=== PATIENT | female | born 1945 | race Caucasian/White ===

== ENCOUNTER → 2022-03-13 09:11 | Outpatient (CLI) | payer OTHER, SELFPAY ==
--- NOTE | 2022-03-13 09:16 | DI.RAD.S_ITS ---
PROCEDURE: XR HIP W PEL IF DONE [place] MIN 4V INDICATIONS: bilateral hip pain, shortness of breath TECHNIQUE: AP pelvis with lateral view(s) of the right and left hip(s). COMPARISON: None. FINDINGS: Bones: No fractures or dislocations. Pelvic ring appears intact. No suspicious bony lesions. Moderate to severe bilateral hip osteoarthritis with osseous hypertrophy, joint space narrowing, subchondral sclerosis and subchondral cyst formation. Soft tissues: The visualized bowel gas pattern is normal. No suspicious soft tissue calcifications. IMPRESSION: Moderate to severe bilateral hip osteoarthritis. Dictated by: Mary Gutierrez MD, PhD on 03/13/2022 at 10:40 Approved by: Mary Gutierrez MD, PhD on 03/13/2022 at 10:41
--- NOTE | 2022-03-13 09:16 | DI.RAD.S_ITS ---
PROCEDURE: XR CHEST 2V INDICATIONS: bilateral hip pain, shortness of breath TECHNIQUE: 2 views of the chest were acquired. COMPARISON: None. FINDINGS: Surgical changes and devices: None. Lungs and pleura: Lungs are clear. No pleural effusions or pneumothorax. The lung volumes are large and the diaphragms are flattened suggesting emphysema. Mediastinum: Mediastinal contours are normal. Heart size is normal. Bones and chest wall: No suspicious bony abnormalities. Soft tissues appear unremarkable. IMPRESSION: No acute cardiopulmonary findings. Emphysematous change. Dictated by: Sapna Pabon M.D. on 03/13/2022 at 10:31 Approved by: Sapna Pabon M.D. on 03/13/2022 at 10:32
== END ==
PROVIDERS: PCP Family Medicine; Referring Provider Family Medicine; Visit Provider Family Medicine
DX: R06.02 Shortness of breath; M25.551 Pain in right hip; M25.552 Pain in left hip; M16.0 Bilateral primary osteoarthritis of hip
CPT/HCPCS: 71046; 73522

== ENCOUNTER → 2022-05-08 14:48 | Outpatient (CLI) | payer OTHER, SELFPAY ==
--- NOTE | 2022-05-08 | DI.ECHO.S_ITS ---
[place] +---------+ [facility] +---------+ : : [address] : : : : [id number] : : : : Phone: [phone]+ Echocardiogram Report + + :Name: SUSI CRUMP Study Date: 05/08/2022 Height: 63 in : :[facility] ReadingLocation: Weight: 138 lb : : Gender: Female BSA: 1.7 m2 : :: 1945 Age: 76 yrs BP: 169/91 mmHg: :Reason For Study: Palpitations : :Ordering Physician: WAQAR, : :LOUISE Virgen Performed By: Paras Mott : :Referring: LOUISE ZAVALETA : + + Interpretation Summary 1) Severely enlarged left ventricle with normal systolic function (EF 60-65%). 2) Normal right ventricle and function. 3) The left atrium is very severely dilated. 4) There is severe mitral valve prolapse of the posterior leaflet. 5) There is severe mitral regurgitation, directed anteriorly. 6) The right ventricular systolic pressure is estimated to be at least 47 mmHg based on an estimated right atrial pressure of 3 mm Hg. 7) No prior Echo available for comparison. Recommend urgent cardiology consult. Procedure: A two-dimensional transthoracic echocardiogram with color flow and Doppler was performed. The study quality was technically adequate. There is no prior echocardiogram noted for this patient. Left Ventricle: The left ventricle is severely dilated. There is normal left ventricular wall thickness. Left ventricular systolic function is normal. The ejection fraction is estimated to be 60-65%. There are no focal wall motion abnormalities. Diastolic function could not be accurately assessed due to confounding valvular disease. Right Ventricle: The right ventricle is normal in size and function. Atria: The left atrium is severely dilated. Right atrial size is normal. The interatrial septum grossly appears intact with no obvious evidence for an atrial septal defect. Mitral Valve: There is severe mitral valve prolapse. There is prolapse of the posterior mitral valve leaflet(s). There is severe mitral regurgitation. The mitral regurgitant jet is eccentrically directed. Aortic Valve: The aortic valve is normal in structure and function. No aortic regurgitation is present. Tricuspid Valve: The tricuspid valve is normal in structure and function. There is mild tricuspid regurgitation. The right ventricular systolic pressure is estimated to be at least 47 mmHg based on an estimated right atrial pressure of 3 mm Hg. Pulmonic Valve: The pulmonic valve is not well visualized. There is no pulmonic valvular regurgitation. Great Vessels: The aortic root is normal size. The dimensions of the ascending aorta are normal. The IVC is of normal diameter and collapses greater than 50% with a sniff. This suggests a low right atrial pressure of 3 mm Hg. Pericardium/ Pleura There is no pericardial effusion. There is no pleural effusion. MMode/2D Measurements & Calculations LVIDd: 6.4 cm LVOT diam: 2.0 cm LVIDs: 4.5 cm Ao root diam: 3.1 cm FS: 30.2 % asc Aorta Diam: 3.2 cm IVSd: 1.0 cm LVPWd: 0.98 cm LV montalvo. diameter/BSA (cm/m^2): 3.9 LV sys. diameter/BSA (cm/m^2): 2.7 LA A2 area: 37.7 cm2 RA long axis: 6.1 cm LA A4 area: 41.2 cm2 RA area: 18.7 cm2 LA length (vol): 7.6 cm RA vol: 48.8 ml LA vol: 173.0 ml RA : 29.5 ml/m2 LA vol index: 104.7 ml/m2 TAPSE: 2.6 cm Doppler Measurements & Calculations Ao V2 max: 112.0 cm/sec LVOT Max Juan: 80.2 cm/sec Ao V2 mean: 71.3 cm/sec LV V1 max P.6 mmHg Ao max P.0 mmHg LV V1 VTI: 11.6 cm Ao mean P.4 mmHg HAIR(I,D): 2.0 cm2 Ao V2 VTI: 18.9 cm HAIR(V,D): 2.3 cm2 sev ratio: 0.61 HAIR indexed to BSA (cm^2/m^2): 1.2 MV E max juan: 124.9 cm/sec TR max juan: 331.7 cm/sec MV A max juan: 62.2 cm/sec TR max P.0 mmHg MV E/A: 2.0 Lat Peak E' Juan: 12.1 cm/sec E/E' lat: 10.3 MV dec time: 0.13 sec GLORIA): 37.2 ml Reading Physician:04:05 PM
== END ==
PROVIDERS: PCP Family Medicine; Referring Provider Family Medicine; Visit Provider Family Medicine
DX: R00.2 Palpitations (principal); I51.7 Cardiomegaly; I34.1 Nonrheumatic mitral (valve) prolapse; I34.0 Nonrheumatic mitral (valve) insufficiency
CPT/HCPCS: 93306

== ENCOUNTER → 2023-08-03 07:51 | Outpatient (CLI) | payer OTHER, SELFPAY ==
--- NOTE | 2023-08-03 | DI.ECHO.S_ITS ---
[place] +---------+ [facility] +---------+ : : [address] : : : : [id number] : : : : Phone: [phone]+ Echocardiogram Report + + :Name: SUSI CRUMP Study Date: 08/03/2023 Height: 61.5 in: :[facility] ReadingLocation: Weight: 138 lb : : Gender: Female BSA: 1.6 m2 : :: 1945 Age: 77 yrs BP: 164/87 mmHg: :Reason For Study: CARDIOMYOPATHY : :Ordering Physician: MANAN, : :WINDY Performed By: Vita Shaffer : :Referring: WINDY CARSON : + + Interpretation Summary 1) Mildly enlarged left ventricle with mildly reduced systolic function (EF 45-50%). 2) Mildly enlarged right ventricle with low normal function. 3) The left atrium is severely dilated. 4) Mitral valve is s/p annuloplasty and repair that opens well (mean inflow gradient 1.4mmHg). There is mild mitral regurgitation. 5) Compared to the Echo done 11/13/2022, LVEF has improved from 30-35% to 45- 50% on this study. Procedure: A two-dimensional transthoracic echocardiogram with color flow and Doppler was performed. The study quality was technically adequate. Comparison is made with the echocardiogram of 11/13/2022. The patient was in sinus bradycardia with heart rates between 43-48 bpm during the exam. Left Ventricle: The left ventricle is mildly dilated. Proximal septal thickening is noted. The estimated left ventricular end diastolic volume is 82 ml. The ejection fraction is estimated to be 45-50%. There is mild global hypokinesis of the left ventricle. Diastolic parameters suggest a pseudonormalization pattern, consistent with probable elevated filling pressures. Right Ventricle: The right ventricle is mildly dilated. The right ventricular systolic function is normal. Atria: The left atrium is severely dilated. Right atrial size is normal. There is no Doppler evidence for an interatrial shunt. Mitral Valve: S/P MV repair 36 mm [place], Flex Form Band (07/16/2022). The mitral valve mean gradient is 1.4 mmHg. There is mild mitral regurgitation. Aortic Valve: The aortic valve is trileaflet. The aortic valve opens well. There is no aortic valve stenosis. No aortic regurgitation is present. Tricuspid Valve: The tricuspid valve is normal in structure and function. There is mild tricuspid regurgitation. The right ventricular systolic pressure is estimated to be at least 26 mmHg based on an estimated right atrial pressure of 3 mm Hg. Pulmonic Valve: The pulmonic valve is not well visualized. There is no pulmonic valvular regurgitation. Great Vessels: The aortic root is normal size. The dimensions of the ascending aorta are normal. The IVC is of normal diameter and collapses greater than 50% with a sniff. This suggests a low right atrial pressure of 3 mm Hg. Pericardium/ Pleura There is no pericardial effusion. There is no pleural effusion. MMode/2D Measurements & Calculations LVIDd: 5.7 cm LVOT diam: 2.1 cm LVIDs: 4.1 cm Ao root diam: 2.9 cm FS: 29.1 % asc Aorta Diam: 3.2 cm EPSS: 0.52 cm Ao Arch Diam (Prox Trans): 2.6 cm IVSd: 0.95 cm LVPWd: 0.85 cm LV montalvo. diameter/BSA (cm/m^2): 3.5 LV sys. diameter/BSA (cm/m^2): 2.5 LA A2 area: 23.7 cm2 RA long axis: 4.8 cm LA A4 area: 22.8 cm2 RA area: 15.9 cm2 LA length (vol): 5.4 cm RA vol: 44.9 ml LA vol: 84.4 ml RA : 27.6 ml/m2 LA vol index: 51.9 ml/m2 IVC diam: 1.6 cm RVD1 (basal): 4.1 cm RVD2 (mid): 2.9 cm TAPSE: 1.6 cm Doppler Measurements & Calculations Ao V2 max: 111.1 cm/sec LVOT Max Juan: 97.2 cm/sec Ao V2 mean: 82.5 cm/sec LV V1 max P.8 mmHg Ao max P.9 mmHg LV V1 VTI: 21.7 cm Ao mean P.9 mmHg HAIR(I,D): 2.9 cm2 Ao V2 VTI: 26.7 cm HAIR(V,D): 3.1 cm2 sev ratio: 0.81 HAIR indexed to BSA (cm^2/m^2): 1.8 MV E max juan: 87.0 cm/sec TR max juan: 237.2 cm/sec MV A max juan: 115.2 cm/sec TR max P.5 mmHg MV E/A: 0.76 PA V2 max: 66.7 cm/sec Med Peak E' Juan: 4.4 cm/sec PA V2 mean: 48.3 cm/sec E/E' med: 19.9 PA mean P.0 mmHg Lat Peak E' Juan: 8.0 cm/sec PA pr(Accel): 32.8 mmHg E/E' lat: 10.9 E/e' average: 15.4 MV dec time: 0.44 sec MVA(VTI): 1.6 cm2 MV V2 mean: 50.3 cm/sec SV(LVOT): 76.4 ml MV mean P.4 mmHg MV V2 VTI: 48.1 cm Reading Physician:02:51 PM
== END ==
PROVIDERS: PCP Student in an Organized Health Care Education/Training Program; Referring Provider Internal Medicine Cardiovascular Disease; Visit Provider Internal Medicine Cardiovascular Disease
DX: I42.9 Cardiomyopathy, unspecified (principal); I51.7 Cardiomegaly
CPT/HCPCS: 93306

== ENCOUNTER 2023-08-25 10:15 | Outpatient (RCR) | payer OTHER, SELFPAY ==
--- OUTSIDE RECORDS SUMMARY | 2023-09-24 15:08 | XMS_ITS | Referral Summary ---
Author Name Unknown Organization [facility] Address [address] [place] [address] Care Team Providers Care Call Center Receptionist Name Role Phone Candido Pierson Primary Care Provider [phone] Reason for Referral * Diagnostic Imaging (Urgent) - Pending Review Specialty Diagnoses / Procedures Referred By Alissa t Referred To Contact Radiology Diagnoses Cardiomyopathy, unspecified type ([facility]) Procedures ECHOCARDIOGRAM COMPLETE Windy Carson MD [address] [place] [address] [address] [place] [address] Referral ID Status Reason Start Date Expiration Date Visits Requested Visits Authorized [id number] Pending Review Specialty Services Required 03/05/2023 02/28/2024 1 1 * Rehabilitation - Outpatient (Urgent) - Authorized Specialty Diagnoses / Procedures Referred By Alissa t Referred To Contact Cardiac Rehabilitation Diagnoses S/P CABG x 1 S/P MVR (mitral valve repair) Windy Carson MD [address] [place] [address] [address] [place] [address] [id number] Referral ID Status Reason Start Date Expiration Date V isits Requested Visits Authorized [id number] Authorized 03/05/2023 02/28/2024 1 1 Reason for Visit * Reason Comments Coronary Artery Disease Valve Disorder Encounter Details Date Type Department Care Team Description 03/05/[address] [facility] Cardiology [address] [place] [id number] Windy Carson MD [address] [place] [address] [address] [place] [address] ASHD (arteriosclerotic heart disease) (Primary Dx); S/P CABG x 1; S/P MVR (mitral valve repair); Mixed hyperlipidemia; Cardiomyopathy, unspecified type ([facility]) Allergies Active Allergy Reactions Severity Noted Date Comments Sulfa (Sulfonamide Antibiotics) Shortness of breath,Rash H igh 05/12/2022 documented as of this encounter (statuses as of 03/29/2023) Medications Medication Sig Dispensed Refills Start Date End Date Status multivitamin (THERAGRAN) tablet tablet Take 1 tablet by mouth daily 0 Active ascorbic acid, vitamin C, (VITAMIN C) 1,000 mg tablet Take 1 tablet (1,000 mg total) by mouth daily 0 Active b complex vitamins tablet Take 1 tablet by mouth 4 (four) times a week 0 Active calcium carbonate 600 mg calcium (1,500 mg) tablet Take 600 mg by mouth 3 (three) times a week 0 Active cholecalciferol (VITAMIN D3) 25 mcg (1,000 unit) oral tablet Take 1 tablet (1,000 Units total) by mouth daily 0 Active acetaminophen (TYLENOL) 500 mg tablet Take 4-6 tablets (2,000-3,000 mg total) by mouth daily 0 Active metoprolol succinate XL (TOPROL-XL) 25 mg 24 hr tablet Take 0.5 tablets (12.5 mg total) by mouth daily 45 tablet 3 03/05/2023 03/04/2024 Active aspirin 81 mg EC tablet Take 1 tablet (81 mg total) by mouth daily 30 tablet 11 03/05/2023 03/04/2024 Active rosuvastatin (CRESTOR) 5 mg tablet Take 1 tablet (5 mg total) by mouth nightly 90 tablet 3 03/05/2023 03/04/2024 Active rosuvastatin (CRESTOR) 5 mg tablet Take 1 tablet (5 mg total) by mouth nightly 90 tablet 3 05/12/2022 03/05/2023 Discontinued (Reorder) metoprolol succinate XL (TOPROL-XL) 25 mg 24 hr tablet Take 1 tablet (25 mg total) by mouth 2 (two) times a day 60 tablet 11 11/19/2022 03/05/2023 Discontinued (Reorder) aspirin 81 mg EC tablet Take 1 tablet (81 mg total) by mouth daily 0 03/05/2023 Discontinued (Reorder) documented as of this encounter (statuses as of 03/29/2023) Active Problems Problem Noted Date Typical atrial flutter 11/03/2022 Coronary artery disease invo lving [place] coronary artery of [place] heart without angina pectoris 08/13/2022 Nonrheumatic mitral valve regurgitation 08/13/2022 Mixed hyperlipidemia 08/13/2022 S/P MVR (mitral valve repair) 08/13/2022 S/P CABG x 1 08/13/2022 documented as of this encounter (statuses as of 03/29/2023) Social History Tobacco Use Types Packs/Day Years Used Date Smoking Tobacco: Former Cigarettes Q uit: 1979 Smokeless Tobacco: Never Tobacco Cessation:Counseling Given: Not Answered Alcohol Use Standard Drinks/Week Comments Yes 2 (1 standard drink = 0.6 oz pur e alcohol) Sex Assigned at Date Recorded Female 06/15/2022 9:41 AM P DT Job Start Date Occupation Industry Not on file Not on file Not on file documented as of this encounter Last Filed Vital Signs Vital Sign Reading Time Taken Comments Blood Pressure 164/62 03/05/2023 11:43 AM PDT Pulse 43 03/05/2023 11:43 AM PDT Temperature - - Respiratory Rate - - Oxygen Saturation - - Inhaled Oxygen Concentration - - Weight 66.7 kg (147 lb) 03/05/2023 11:43 AM PDT Height 160 cm (5' 3) 03/05/2023 11:43 AM PDT Body Mass Index 26.04 03/05/2023 11:43 AM PDT documented in this encounter Progress Notes * Windy Carson MD - 03/05/2023 11:40 AM PDT Decrease metoprolol XL to 12.5mg daily. * Windy Carson MD - 03/05/2023 11:40 AM PDT Subjective Patient ID: Socorro Pinzon is a 77 y.o. female that presents today for had concerns including Coronary Artery Disease and Valve Disorder. HPI: 77 yo W h/o MV repair and CAD here for F/U on her CAD. Patient is here by her . Since her last visit with me, she underwent atrial flutter ablation and has done well. She continues to have mild dyspnea and significant left hip and left knee pains such as climbing up a flight of stairs. She has minimal chest wall pain. Denies lightheadedness or syncope. Home BP readings are in the 110s-120/k07l-12t. PROBLEM LIST: # Mitral valve regurgitation s/p MV annuloplasty and repair 06/2022 # CAD s/p 1V CABG (SVG->PDA) with MV repair # Atrial flutter s/p ablation 10/2022 # HTN # HLD Past Medical History: Diagnosis Date ??? Arrhythmia ??? Coronary artery disease involving [place] coronary artery of [place] heart without angina pectoris 08/13/2022 ??? Mixed hyperlipidemia ??? MVP (mitral valve prolapse) 05/08/2022 ??? Nonrheumatic mitral valve regurgitation 08/13/2022 ??? Osteoarthritis ??? Primary hypertension ??? Severe mitral valve regurgitation 05/08/2022 Past Surgical History: Procedure Laterality Date ??? CORONARY ARTERY BYPASS GRAFT Family History Problem Relation Age of Onset ??? Aortic aneurysm Father ??? Atrial fibrillation Sister ??? Hyperlipidemia Sister ??? Hyperlipidemia Brother Social History Socioeconomic History ??? Marital status: Tobacco Use ??? Smoking status: Former Types: Cigarettes Quit date: 1980 Years since quittin.3 ??? Smokeless tobacco: Never Substance and Sexual Activity ??? Alcohol use: Yes Alcohol/week: 2.0 standard drinks Types: 1 Glasses of wine, 1 Shots of liquor per week ??? Drug use: Not Currently Types: Marijuana, LSD, Cocaine, Mescaline ??? Sexual activity: Defer Social History Narrative Former smoker who quit in the , currently lives in [place] with her while their home in [place] is being renovated. Allergies Allergen Reactions ??? Sulfa (Sulfonamide Antibiotics) Shortness of breath and Rash Current Medication List Sig acetaminophen (TYLENOL) 500 mg tablet Take 4-6 tablets (2,000-3,000 mg total) by mouth daily ascorbic acid, vitamin C, (VITAMIN C) 1,000 mg tablet Take 1 tablet (1,000 mg total) by mouth daily b complex vitamins tablet Take 1 tablet by mouth 4 (four) times a week calcium carbonate 600 mg calcium (1,500 mg) tablet Take 600 mg by mouth 3 (three) times a week cholecalciferol (VITAMIN D3) 25 mcg (1,000 unit) oral tablet Take 1 tablet (1,000 Units total) by mouth daily multivitamin (THERAGRAN) tablet tablet Take 1 tablet by mouth daily aspirin 81 mg EC tablet (Discontinued) Take 1 tablet (81 mg total) by mouth daily metoprolol succinate XL (TOPROL-XL) 25 mg 24 hr tablet (Discontinued) Take 1 tablet (25 mg total) by mouth 2 (two) times a day rosuvastatin (CRESTOR) 5 mg tablet (Discontinued) Take 1 tablet (5 mg total) by mouth nightly aspirin 81 mg EC tablet Take 1 tablet (81 mg total) by mouth daily metoprolol succinate XL (TOPROL-XL) 25 mg 24 hr tablet Take 0.5 tablets (12.5 mg total) by mouth daily rosuvastatin (CRESTOR) 5 mg tablet Take 1 tablet (5 mg total) by mouth nightly Review of Systems Constitutional: Negative for fatigue and unexpected weight change. Eyes: Negative for visual disturbance. Respiratory: Negative for chest tightness and shortness of breath. Cardiovascular: Negative for chest pain, palpitations and leg swelling. Gastrointestinal: Negative for blood in stool. Endocrine: Negative for polydipsia. Genitourinary: Negative for hematuria. Skin: Negative for rash. Neurological: Negative for dizziness, syncope and weakness. Hematological: Does not bruise/bleed easily. Psychiatric/Behavioral: The patient is not nervous/anxious. Objective BP (!) 164/62 (BP Location: Left arm, Patient Position: Sitting) Pulse (!) 43 Ht 1.6 m Wt 66.7 kg BMI 26.04 kg/m?? Physical Exam: General appearance: No apparent distress, well-nourished, pleasant, cooperative HEET: Normocephalic atraumatic, no scleral icterus, tongue midline, mucous membranes moist Neck: supple Cardiovascular: tachy, regular, normal S1 and normal S2, 3/6 systolic murmur radiating to the apex,PMI nondisplaced, no JVD, no peripheral edema Respiratory: Good aeration, CTAB Abdomen: Soft, nontender, nondistended, + bowel sounds Neuro: Alert, no facial droop, tongue midline, no gross motor deficits Psych: appropriate affect Skin: no rashes on face, neck, and lower extremities Limited Echo 07/19/2022: ?Left??Ventricle: Left ventricle size is normal. Mildly increased wall thickness. Septal motion is consistent with post-operative status. Normal systolic function. LV EF is 50 - 55 %, assessed by visual estimation. ?Right??Ventricle: Right ventricle size is normal. Normal systolic function. ?Mitral??Valve: Leaflets appear myxomatous. Status post valvuloplasty. No transvalvular regurgitation. MV mean gradient is 2 mmHg. ?Tricuspid??Valve: Mild transvalvular regurgitation. ?Right??Sided??Pressures: The IVC diameter is </=21 mm with a >50% collapse with inspiration suggesting a right atrial pressure of 3 mmHg. Estimated right ventricular systolic pressure (RVSP) is 30 mmHg. Echo 11/13/2022: 1) Borderline enlarged left ventricle with moderately to severely reduced systolic function (EF 30-35%). 2) Normal right ventricular size with mildly to moderately reduced function. 3) The left atrium is severely dilated. 4) Mitral valve is s/p annuloplasty and repair that opens well (mean inflow gradient 2mmHg). There is mild mitral regurgitation. 5) No prior Echo available for comparison. ECG 05/12/2022: Sinus bradycardia at a rate of 55 Labs 03/18/2022: Total Cholesterol 256, LDL 201, HDL 59, Tryglycerides 144, Na 140, K 4.3, Cl 105, CO2 22, BUN 9, Creatinine 0.7, Glucose 95, Ca 10.1, WBC 5.8, Hemoglobin 14.0, Hematocrit 43.3, Platelets 226 Labs 10/29/2022: TC 197, TG 120, [id number] Assessment/Plan Comments: 1. ASHD (arteriosclerotic heart disease) 2. S/P CABG x 1 Ambulatory Referral to Cardiac Rehabilitation 3. S/P MVR (mitral valve repair) Ambulatory Referral to Cardiac Rehabilitation 4. Mixed hyperlipidemia 5. Cardiomyopathy, unspecified type (CMS-HCC) ECHOCARDIOGRAM COMPLETE, CANCELED: ECHOCARDIOGRAM COMPLETE # Mitral valve regurgitation s/p MV annuloplasty and repair 06/2022: EF 30-35% on the setting of atrial flutter with RVR. - Antibiotic prophylaxis prior to dental procedures - Repeat Echo # CAD s/p 1V CABG (SVG->PDA) with MV repair: No anginal symptoms. Plan: - Continue aspirin 81mg daily - Continue rosuvastatin 5mg at bedtime # Atrial flutter s/p ablation 10/2022. Plan: - Decrease metoprolol XL from 25mg daily to 12.5mg daily - No need for anticoagulation F/U in 6 months with labs. Echo as next available Electronically signed by Windy Carson MD 03/05/2023 12:17 PM documented in this encounter Miscellaneous Notes * Addendum Note - Windy Carson MD - 03/05/2023 11:40 AM PDTAddended by: WINDY CARSON on: 03/05/2023 12:17 PM Modules accepted: Orders documented in this encounter Plan of Treatment Upcoming Encounters Date Type Specialty Care Team Description 04/28/2023 Office Visit Internal Medicine Gloria Henao DO [address] [place] [address] Scheduled Orders Name Type Priority Associated Diagnoses Orde r Schedule ECHOCARDIOGRAM COMPLETE Imaging Urgent ( Imaging Only) Cardiomyopathy, unspecified type ([facility]) Expected: 03/05/2023, Expires: 03/05/2025 Scheduled Referrals Name Type Priority Associated Diagnoses Order Schedule Ambulatory Referral to Cardiac Rehabilitation Outpatient Referral Routine S/P CABG x 1 S/P MVR (mitral valve repair) Ordered: 03/05/2023 documented as of this encounter Visit Diagnoses Diagnosis ASHD (arteriosclerotic heart disease)- Primary Coronary atherosclerosis of unspecified type of vessel, [place] or graft S/P CABG x 1 Postsurgical aortocoronary bypass status S/P MVR (mitral valve repair) Mixed hyperlipidemia Cardiomyopathy, unspecified type ([facility]) documented in this encounter Advance Directives Latest Code Status on File Code Status Date Activated Date Inactivated Comments Full Code 11/16/2022 9:00 PM 11/16/2022 9:48 PM Code Status History Code Status Date Activated Date Inactivated Comments Full Code 11/16/2022 3:29 PM 11/16/2022 9:00 PM Full Code 06/03/2022 3:33 PM 06/04/2022 2:42 AM Care Teams Call Center Receptionist Relationship Specialty Start Date End Date Candido Pierson [address] [place] [id number] PCP - General Family Medicine 05/08/22 documented as of this encounter
== END 2023-08-25 12:56 ==
LOC: CAR 10:15
PROVIDERS: PCP Student in an Organized Health Care Education/Training Program; Referring Provider Internal Medicine Cardiovascular Disease; Visit Provider Internal Medicine Cardiovascular Disease
DX: Z95.1 Presence of aortocoronary bypass graft (principal); Z98.890 Other specified postprocedural states
CPT/HCPCS: 93798